=== PATIENT | female | born 1990 | race Caucasian/White ===

== ENCOUNTER 2016-11-15 14:23 | Emergency (ER) | payer OTHER ==
[2016-11-15 14:32] VITALS: BMI 29.2
[2016-11-15] MEDS ORDERED: PANTOPRAZOLE SODIUM 40 MG in SODIUM CHLORIDE 100 ML IVPB ONE (15:57)
[2016-11-15] MEDS ORDERED: ONDANSETRON 4 MG/2 ML VIAL IVPUSH ONE (15:57)
[2016-11-15] MEDS ORDERED: SODIUM CHLORIDE 1,000 ML IV STA ×2 (15:57→17:40)
[2016-11-15] MEDS ORDERED: ONDANSETRON 4 MG/2 ML VIAL ONE (16:26)
[2016-11-15] MEDS ORDERED: PANTOPRAZOLE SODIUM 100 ML IVPB ONE (16:26)
[2016-11-15 16:36] LABS: BASOPHIL 0.6 % (0-2.0); MCH 25.7 pg (25.7-33.7); MEAN CELL VOLUME 77.9 fl (80-96); MEAN PLT VOLUME 8.7 fl (7.5-11.1); NEUTROPHILS 85.4 % (42.8-82.8); PLATELET COUNT 259 K/MM3 (134-434); RDW 17.5 % (11.6-15.6); WHITE BLOOD COUNT 11.4 K/mm3 (4.0-10.0)
[2016-11-15 16:45] LABS: URINE APPEARANCE CLEAR; URINE BILIRUBIN NEGATIVE (NEGATIVE); URINE BLOOD NEGATIVE (NEGATIVE); URINE COLOR LTYELLOW; URINE GLUCOSE (UA) NEGATIVE (NEGATIVE); URINE KETONE TRACE (NEGATIVE); URINE NITRITE NEGATIVE (NEGATIVE); URINE PROTEIN NEGATIVE (NEGATIVE); URINE UROBILINOGEN NEGATIVE E.U./dl (0.2-1.0)
[2016-11-15 16:59] LABS: URINE LEUK ESTERASE 1+ (NEGATIVE)
[2016-11-15 17:01] LABS: MAGNESIUM 2.1 mg/dL (1.8-2.4); URINE MUCUS RARE; URINE RBC 1 /hpf (0-3); URINE WBC 5 /hpf (3-5)
[2016-11-15 17:04] LABS: ANION GAP 11 (8-16); CO2 25 mmol/L (21-32); CREATININE 0.6 mg/dL (0.55-1.02); GLUCOSE,RANDOM 110 mg/dL (74-106); SGOT/AST 18 U/L (15-37); SGPT/ALT 22 U/L (12-78)
[2016-11-15 17:06] LABS: ALK PHOS 87 U/L (45-117); BILIRUBIN,TOTAL 0.8 mg/dL (0.2-1.0); TOT PROT 7.4 g/dl (6.4-8.2)
[2016-11-15] MEDS ORDERED: LIDOCAINE VISCOUS 2% ORAL/TOP 20 ML UNIT-DOSE CUP MM ONE (17:40)
[2016-11-15] MEDS ORDERED: HYOSCYAMINE SULFATE 0.125 MG *ODT PO ONE (17:41)
[2016-11-15] MEDS ORDERED: MAG HYDROX/AL HYDROX/SIMETH 30 ML UNIT-DOSE CUP PO ONE (17:57)
[2016-11-15] MEDS ORDERED: MAG HYDROX/AL HYDROX/SIMETH 30 ML UNIT-DOSE CUP ONE (18:23)
[2016-11-15 18:58] VITALS: BP 148/77; PULSE 74; TEMP 98.2
--- NOTE | 2016-11-15 18:58 | PDOC ---
History of Present Illness - General Chief Complaint: Pain Stated Complaint: ABD PAIN Time Seen by Provider: 11/15/16 15:48 History Source: Patient Exam Limitations: No Limitations - History of Present Illness Travel History: No Initial Comments: 11/15/16 16:51 26-year-old female with history of gastritis presents to the ED with intermittent nausea and vomiting after meals and a burning sensation to her esophagus. Patient states is currently on no medication since she has not had symptoms for approximately 8 months. Patient states has had no fever, chills, dizziness, weakness, irregular menses, or dysuria. Patient also denies bowel complaints. Patient does state smokes marijuana 2-3 times a week but denies a daily usage. Timing/Duration: reports: intermittent Quality: reports: moderate, burning Abdominal Pain Onset Location: reports: epigastric Pain Radiation: reports: no radiation Activities at Onset: reports: none Aggravating Factors: improves with: Eating Alleviating Factors: improves with: None Past History - Past Medical History Allergies/Adverse Reactions: Allergies Allergy/AdvReac Type Severity Reaction Status Date / Time No Known Allergies Allergy Verified 11/15/16 14:32 Home Medications: Ambulatory Orders NK [No Known Home Medication] 11/15/16 GI Disorders: Yes - Reproductive History LMP Normal: Yes Is Patient Now?: No - Psycho/Social/Smoking Cessation Hx Suicidal Ideation: No Smoking History: Never smoked Information on smoking cessation initiated: No Hx Alcohol Use: Yes (TWICE A WEEK) Substance Use Type: Marijuana Patient Lives Alone: No Lives with/in: parents Abd/GI Specific PMHX - Complaint Specific PMHX GI Ulcer Disease: No Review of Systems - Review of Systems Able to Perform ROS?: Yes Constitutional: No: Symptoms Reported HEENTM: No: Symptoms Reported Respiratory: No: Symptoms reported Cardiac (ROS): No: Symptoms Reported ABD/GI: Yes: Nausea, Vomiting, Indigestion : No: Symptoms Reported Musculoskeletal: No: Symptoms Reported Integumentary: No: Symptoms Reported Neurological: No: Symptoms reported Hematologic/Lymphatic: No: Symptoms Reported *Physical Exam - Vital Signs Last Vital Signs Temp Pulse Resp BP Pulse Ox 98 F 60 18 135/77 99 11/15/16 14:30 11/15/16 14:30 11/15/16 14:30 11/15/16 14:30 11/15/16 14:30 - Physical Exam General Appearance: Yes: Nourished, Appropriately Dressed. No: Apparent Distress HEENT: positive: EOMI, RENATA. negative: Pale Conjunctivae Neck: positive: Supple Respiratory/Chest: positive: Lungs Clear, Normal Breath Sounds. negative: Respiratory Distress, Accessory Muscle Use Cardiovascular: positive: Regular Rhythm, Regular Rate. negative: Murmur Gastrointestinal/Abdominal: positive: Soft, Tenderness (epigastric no right upper quadrant tenderness) Extremity: negative: Normal Capillary Refill Integumentary: positive: Normal Color, Warm, Moist Neurologic: positive: Motor Strength 5/5 (ambulatory) ED Treatment Course - LABORATORY CBC & Chemistry Diagram: 11/15/16 16:32 11/15/16 16:32 - ADDITIONAL ORDERS Additional order review: Laboratory Results 11/15/16 11/15/16 11/15/16 16:32 16:32 16:32 Sodium 140 Potassium 4.4 Chloride 104 Carbon Dioxide 25 Anion Gap 11 BUN 8 Creatinine 0.6 Creat Clearance w eGFR > 60 Random Glucose 110 H Calcium 9.0 Magnesium 2.1 Total Bilirubin 0.8 D AST 18 D ALT 22 D Alkaline Phosphatase 87 D Total Protein 7.4 Albumin 4.0 Lipase 57 L Urine Color Ltyellow Urine Appearance Clear Urine pH 6.0 Ur Specific [place] 1.016 Urine Protein Negative Urine Glucose (UA) Negative Urine Ketones Trace H Urine Blood Negative Urine Nitrite Negative Urine Bilirubin Negative Urine Urobilinogen Negative Ur Leukocyte Esterase 1+ H Urine RBC 1 Urine WBC 5 Ur Epithelial Cells Few Urine Mucus Rare Urine HCG, Qual Negative 11/15/16 16:32 RBC 4.63 MCV 77.9 L MCHC 33.0 RDW 17.5 H D MPV 8.7 Neutrophils % 85.4 H Lymphocytes % 11.8 D Monocytes % 2.2 L Eosinophils % 0.0 D Basophils % 0.6 - Medications Given in the ED: ED Medications Discontinued Medications Generic Name Dose Route Start Last Admin Trade Name Freq PRN Reason Stop Dose Admin Al Hydroxide/Mg Hydroxide 30 ml 11/15/16 17:57 11/15/16 18:28 Mylanta Oral Suspension - PO 11/15/16 17:58 30 ml ONCE ONE Administration Hyoscyamine Sulfate 0.125 mg 11/15/16 17:41 11/15/16 18:27 Levsin Odt - PO 11/15/16 17:42 0.125 mg ONCE ONE Administration Pantoprazole Sodium 40 mg/ 100 mls @ 200 mls/hr 11/15/16 15:57 11/15/16 16:33 Sodium Chloride IVPB 11/15/16 16:26 200 mls/hr ONCE ONE Administration Sodium Chloride 1,000 mls @ 1,000 mls/hr 11/15/16 15:57 11/15/16 16:33 Normal Saline - IV 11/15/16 16:56 1,000 mls/hr ASDIR STA Administration Sodium Chloride 1,000 mls @ 1,000 mls/hr 11/15/16 17:40 11/15/16 18:00 Normal Saline - IV 11/15/16 18:39 1,000 mls/hr ASDIR STA Administration Lidocaine HCl 20 ml 11/15/16 17:40 11/15/16 18:00 Xylocaine 2% Viscous Oral - MM 11/15/16 17:41 20 ml ONCE ONE Administration Ondansetron HCl 4 mg 11/15/16 15:57 11/15/16 16:33 Zofran Injection IVPUSH 11/15/16 15:58 4 mg ONCE ONE Administration Medical Decision Making - Medical Decision Making 11/15/16 17:09 Patient here with nausea vomiting and epigastric burning. Patient history of gastritis but does not follow up with a gastrologist or take medication every day. Patient ordered for labs, Protonix, IV fluids, Zofran and urine with urine . 11/15/16 18:00 Laboratory Tests 11/15/16 11/15/16 11/15/16 16:32 16:32 16:32 WBC 11.4 H Hgb 11.9 Hct 36.1 Neutrophils % 85.4 H Sodium 140 Potassium 4.4 Chloride 104 Carbon Dioxide 25 Anion Gap 11 BUN 8 Creatinine 0.6 Random Glucose 110 H Magnesium AST 18 D ALT 22 D Lipase Urine Ketones Trace H Urine Nitrite Negative Ur Leukocyte Esterase 1+ H Urine WBC 5 Urine HCG, Qual Negative 11/15/16 16:32 WBC Hgb Hct Neutrophils % Sodium Potassium Chloride Carbon Dioxide Anion Gap BUN Creatinine Random Glucose Magnesium 2.1 AST ALT Lipase 57 L Urine Ketones Urine Nitrite Ur Leukocyte Esterase Urine WBC Urine HCG, Qual Patient still complaining of pain but denies nausea. Patient will be given a GI cocktail. 11/15/16 19:00 Patient states feeling better and will discharge home with Protonix. Patient also be given referral to salesperson driver. *DC/Admit/Observation/Transfer Diagnosis at time of Disposition: Gastritis Qualifiers: Gastritis type: unspecified gastritis Chronicity: chronic Gastritis bleeding: without bleeding Qualified Code(s): K29.50 - Unspecified chronic gastritis without bleeding - Discharge Dispostion Disposition: HOME Condition at time of disposition: Improved - Referrals Referrals: Prashant Orozco MD [Staff Physician] - - Patient Instructions Printed Discharge Instructions: DI for Gastritis Additional Instructions: Please take medication starting tomorrow and avoid spicy greasy food. Please also follow-up with referred salesperson driver
== END 2016-11-15 19:12 | disposition home or self-care (01) ==
LOC: JER 14:23
PROC: 3E0337Z Introduction of Electrolytic and Water Balance Substance into Peripheral Vein, Percutaneous Approach (ICD-10-PCS; principal; 2016-11-15)
PROC: 3E033GC Introduction of Other Therapeutic Substance into Peripheral Vein, Percutaneous Approach (ICD-10-PCS; 2016-11-15)
DX: K29.50 Unspecified chronic gastritis without bleeding (principal)
CPT/HCPCS: 36415; 80053; 81003; 81015; 83690; 83735; 84703; 85025; 96361; 96365; 96375; 99282-25

== ENCOUNTER 2018-05-29 20:22 | Emergency (ER) | payer OTHER ==
[2018-05-29 20:27] VITALS: BP 135/78; PULSE 86; TEMP 99; BMI 26.5
--- NOTE | 2018-05-29 21:14 | PDOC ---
History of Present Illness - General Chief Complaint: Cold Symptoms Stated Complaint: Shortness of Breath Time Seen by Provider: 05/29/18 21:08 History Source: Patient Exam Limitations: No Limitations - History of Present Illness Initial Comments: 05/29/18 21:13 HISTORY OF PRESENT ILLNESS: This is a 28-year-old female without significant medical history presents emergency Department with 2 weeks of upper respiratory symptoms. Patient reports subjective fevers and sore throat and cough. Patient denies shortness of breath or respiratory distress. Patient reports associated expressing similar symptoms over that period of time. No recent travel. PAST MEDICAL HISTORY: Denies past medical history SURGICAL HISTORY: Denies ALLERGIES: No known drug allergies REVIEW OF SYSTEMS General/Constitutional: +fever/chills. Denies weakness, weight change. HEENT: Denies change in vision. Denies ear pain or discharge. +sore throat. Cardiovascular: Denies chest pain or shortness of breath. Respiratory: Moist productive cough. No wheezing, or hemoptysis. Gastrointestinal: Denies nausea, vomiting, diarrhea or constipation. Denies rectal bleeding. Genitourinary: Denies dysuria, frequency, or change in urination. Musculoskeletal: Denies joint or muscle swelling or pain. Denies neck or back pain. Skin and breasts: Denies rash or easy bruising. Neurologic: Denies headache, vertigo, loss of consciousness, or loss of sensation. Psychiatric: Denies depression or anxiety. Endocrine: Denies increased thirst. Denies abnormal weight change. Hematologic/Lymphatic: Denies anemia, easy bleeding, or history of blood clots. Allergic/Immunologic: Denies hives or skin allergy. Denies latex allergy. PHYSICAL EXAM General Appearance: Well-appearing, appropriately dressed. No apparent distress , no intoxication. HEENT: EOMI, PERRLA, normal ENT inspection, normal voice, TMs normal. No conjunctival pallor. No photophobia, scleral icterus. Pharyngeal erythema present. No lesions or exudates. Neck: Supple. Trachea midline. No tenderness, rigidity, carotid bruit, stridor , lymphadenopathy, or thyromegaly. Respiratory/Chest: Lungs CTAB. No shortness of breath, chest tenderness, respiratory distress, accessory muscle use. No crackles, rales, rhonchi, stridor , dullness. Scattered wheezes. Cardiovascular: RRR. S1, S2. No JVD, murmur, bradycardia, tachycardia. Vascular Pulses: Dorsalis-Pedis (R): 2+, Dorsalis-Pedis (L): 2+ Gastrointestinal/Abdominal: Normal bowel sounds. Abdomen soft, non-distended. No tenderness or rebound tenderness. No organomegaly, pulsatile mass, guarding, hernia, hepatomegaly, splenomegaly. Lymphatic: No adenopathy, tenderness. Musculoskeletal/Extremities: Normal inspection. FROM of all extremities, normal capillary refill. Pelvis Stable. No CVA tenderness. No tenderness to extremities, pedal edema, swelling, erythema or deformity. Integumentary: Appropriate color, dry, warm. No cyanosis, erythema, jaundice or rash Neurologic: paper machine tender II-XII intact. Fully oriented, alert. Appropriate mood/affect. Motor strength 5/5. No appreciable EOM palsy, facial droop or sensory deficit. Past History - Past Medical History Allergies/Adverse Reactions: Allergies Allergy/AdvReac Type Severity Reaction Status Date / Time No Known Allergies Allergy Verified 05/29/18 20:27 Home Medications: Ambulatory Orders Guaifenesin [Mucinex -] 600 mg PO BID 05/29/18 COPD: No GI Disorders: Yes - Suicide/Smoking/Psychosocial Hx Smoking History: Never smoked Hx Alcohol Use: Yes (TWICE A WEEK) Substance Use Type: Marijuana *Physical Exam - Vital Signs Last Vital Signs Temp Pulse Resp BP Pulse Ox 99 F 86 18 135/78 98 05/29/18 20:25 05/29/18 20:25 05/29/18 20:25 05/29/18 20:25 05/29/18 20:25 Medical Decision Making - Medical Decision Making 05/29/18 21:13 A/P: 28-year-old female without significant medical history with 2 weeks of productive cough, sore throat Oropharynx erythematous without lesions or exudate Scattered expiratory wheezes noted DuoNeb's, reassess 05/29/18 22:10 Repeat lung exam reveals clear lungs after the nebulizer treatment. I'll discharge the patient home with symptomatic treatment of an upper respiration infection. *DC/Admit/Observation/Transfer Diagnosis at time of Disposition: URI (upper respiratory infection) Qualifiers: URI type: unspecified viral URI Qualified Code(s): J06.9 - Acute upper respiratory infection, unspecified - Discharge Dispostion Disposition: HOME Condition at time of disposition: Stable Decision to Admit order: No - Referrals - Patient Instructions Printed Discharge Instructions: DI for Viral Upper Respiratory Infection -- Adult Additional Instructions: Rest, drink lots of fluids: Teas, water, soups, Pedialyte Saltwater gargles Steamy showers/seem to face break up mucus Avoid contact with others until fevers and cough resolved Lots of handwashing and good hygiene Continue [id number] medications for symptomatic relief Tylenol or Motrin for fever and pain Followup with private physician in one to 2 days as needed Return to emergency department for worsened symptoms, fevers, dehydration - Post Discharge Activity
[2018-05-29] MEDS ORDERED: ALBUTEROL SO4 2.5/IPRATROPIUM 0.5 INH SOL 3 ML VIAL.NEB. NEB ONE (21:23)
[2018-05-29] MEDS: ALBUTEROL SO4 2.5/IPRATROPIUM 0.5 INH SOL 3 ML VIAL.NEB. NEB SCH ×2 (21:32→21:54)
== END 2018-05-29 22:17 | disposition home or self-care (01) ==
LOC: JERFT 20:22
PROC: 3E0F7GC Introduction of Other Therapeutic Substance into Respiratory Tract, Via Natural or Artificial Opening (ICD-10-PCS; principal; 2018-05-29)
PROC: 3E0F7GC Introduction of Other Therapeutic Substance into Respiratory Tract, Via Natural or Artificial Opening (ICD-10-PCS; 2018-05-29)
PROC: 3E0F7GC Introduction of Other Therapeutic Substance into Respiratory Tract, Via Natural or Artificial Opening (ICD-10-PCS; 2018-05-29)
PROC: 3E0F7GC Introduction of Other Therapeutic Substance into Respiratory Tract, Via Natural or Artificial Opening (ICD-10-PCS; 2018-05-29)
DX: J06.9 Acute upper respiratory infection, unspecified (principal)
CPT/HCPCS: 94640; 99281-25; J7620

== ENCOUNTER 2018-11-09 10:09 | Emergency (ER) | payer SELFPAY ==
[2018-11-09 10:30] VITALS: TEMP 99; BMI 27.4
[2018-11-09] MEDS ORDERED: ALBUTEROL SO4 2.5/IPRATROPIUM 0.5 INH SOL 3 ML VIAL.NEB. NEB ONE ×4 (10:38→12:06)
[2018-11-09] MEDS ORDERED: predniSONE 20 MG TABLET (UD) PO ONE (10:38)
[2018-11-09] MEDS ORDERED: predniSONE 20 MG TABLET (UD) ONE (10:43)
--- NOTE | 2018-11-09 11:00 | PDOC ---
History of Present Illness - General Chief Complaint: Respiratory Stated Complaint: SHORTNESS OF BREATH Time Seen by Provider: 11/09/18 10:36 History Source: Patient Exam Limitations: No Limitations - History of Present Illness Associated Symptoms: reports: cough, nasal congestion, wheezing (cough and wheezing x 1 day). denies: chest pain/soreness, dizziness, earache, facial pain , fever/chills, headache, lightheadedness, muscle aches, shortness of breath, sore throat Past History - Travel Traveled outside of the country in the last 30 days: No Close contact w/someone who was outside of country & ill: No - Past Medical History Allergies/Adverse Reactions: Allergies Allergy/AdvReac Type Severity Reaction Status Date / Time No Known Allergies Allergy Verified 11/09/18 10:36 Home Medications: Ambulatory Orders Albuterol Sulfate [Albuterol Sulfate Hfa] 8.5 gm IH ACDIN 7 Days #1 [email or web address] 11/09/18 Benzonatate [Tessalon Pearls -] 100 mg PO TID #21 capsule 11/09/18 COPD: No GI Disorders: Yes - Suicide/Smoking/Psychosocial Hx Smoking History: Never smoked Hx Alcohol Use: Yes (TWICE A WEEK) Substance Use Type: Marijuana Respiratory Specific PMHX - Complaint Specific PMHX Angina: No Bronchitis: No Pneumonia: No Pulmonary Embolus: No TB (Tuberculosis): No Review of Systems - Review of Systems Is the patient limited [place] proficient: No Constitutional: No: Chills, Fever Respiratory: Yes: Cough, Shortness of Breath, Wheezing, Productive cough. No: Orthopnea Cardiac (ROS): Yes: Chest Tightness. No: Chest Pain, Palpitations, Syncope Neurological: No: Headache, Numbness, Paresthesia, Weakness, Dizziness *Physical Exam - Vital Signs Last Vital Signs Temp Pulse Resp BP Pulse Ox 99 F 111 H 20 167/89 96 11/09/18 10:28 11/09/18 10:28 11/09/18 10:28 11/09/18 10:28 11/09/18 10:28 - Physical Exam General Appearance: Yes: Nourished Respiratory/Chest: positive: Wheezing Cardiovascular: positive: Regular Rhythm, Regular Rate, S1, S2 Extremity: positive: Normal Capillary Refill, Normal Inspection Neurologic: positive: manufacturing test engineer II-XII NML intact, Fully Oriented ED Treatment Course - RADIOLOGY Radiology Studies Ordered: Category Date Time Status CHEST PA & LAT [RAD] Stat Radiology 11/09/18 10:38 Ordered - Medications Given in the ED: ED Medications Discontinued Medications Generic Name Dose Route Start Last Admin Trade Name Kristen PRN Reason Stop Dose Admin Albuterol/Ipratropium 1 amp 11/09/18 10:38 11/09/18 10:47 Duoneb - NEB 11/09/18 10:39 1 amp ONCE ONE Administration Prednisone 60 mg 11/09/18 10:38 11/09/18 10:47 Deltasone - PO 11/09/18 10:39 60 mg ONCE ONE Administration Medical Decision Making - Medical Decision Making 11/09/18 10:56 28 years old female presents with cough chest congestion and wheezing since yesterday, she denies any smoking, chest discomfort any recent travel fever body aches or any sick contact. She reports the same similar symptoms occurred about 2 months ago and she was treated for upper respiratory infection. Patient reports she used her brother's inhaler last night with relief to her symptoms. On examination patient is actively wheezing on exam I will administer nebulizer and prednisone chest x-rays pending, elevated BP noted on triage, pt denies any hx of HTN, MONTES or visual disturbance. 11/09/18 13:17 xray no acute chest pathology pt given antitussive, inhaler PCP f/u recommended Clear lungs after 2 duo nebs 11/09/18 19:14 Rpt BP improved pt advised to f/u PCP for BP checks *DC/Admit/Observation/Transfer Diagnosis at time of Disposition: Acute bronchospasm due to viral infection - Discharge Dispostion Disposition: HOME Condition at time of disposition: Stable Decision to Admit order: No - Prescriptions Prescriptions: Albuterol Sulfate [Albuterol Sulfate Hfa] 8.5 gm IH ACDIN 7 Days #1 hfa.aer.[email or web address] Benzonatate [Tessalon Pearls -] 100 mg PO TID #21 capsule - Referrals - Patient Instructions Printed Discharge Instructions: Acute Bronchitis Additional Instructions: Please follow up with primary doctor Return to the Emergency Department if worsening symptoms occurs. - Post Discharge Activity
[2018-11-09 11:28] VITALS: BP 131/87; PULSE 105
== END 2018-11-09 12:50 | disposition home or self-care (01) ==
LOC: JERFT 10:09
PROC: 3E0F7GC Introduction of Other Therapeutic Substance into Respiratory Tract, Via Natural or Artificial Opening (ICD-10-PCS; principal; 2018-11-09)
DX: J20.8 Acute bronchitis due to other specified organisms (principal)
CPT/HCPCS: 71046-TC-FY; 84703; 99281-25

== ENCOUNTER 2023-11-10 08:24 | Observation (INO) | payer BC ==
[2023-11-10] MEDS ORDERED: EPINEPHrine/PF 1 MG/1 ML (1:1,000) AMPULE IM ONE (08:30)
[2023-11-10] MEDS: methylPREDNISolone NA SUCC 125 MG/2 ML VIAL IVPUSH ONE (08:32)
[2023-11-10] MEDS: MAGNESIUM SULF 50% (8.12 MEQ/2 ML-1 GM VIAL) IVPB ONE (08:32)
[2023-11-10] MEDS ORDERED: EPINEPHrine/PF 1 MG/1 ML (1:1,000) AMPULE ONE (08:33)
[2023-11-10 08:49] VITALS: BMI 25.8
[2023-11-10] MEDS: ALBUTEROL SO4 0.083% IH SOL 2.5 MG/3 ML VIAL.NEB. NEB ONE (08:54)
[2023-11-10] MEDS: ALBUTEROL SO4 2.5/IPRATROPIUM 0.5 INH SOL 3 ML VIAL.NEB. NEB SCH ×2 (08:54→12:09)
[2023-11-10 09:05] LABS: VENOUS O2 SATURATION 76.9 % (70-80); VENOUS PCO2 54.7 mmHg (38-52); VENOUS PH 7.235 (7.310-7.410)
[2023-11-10 09:11] LABS: BASO % 0.7 % (0-2.0); EOS % 4.6 % (0-4.5); HEMATOCRIT 29.2 % (32.4-45.2); HEMOGLOBIN 9.2 GM/dL (10.7-15.3); LYMPH % 29.5 % (8-40); MCH 20.4 pg (25.7-33.7); MCHC 31.3 g/dl (32.0-36.0); MEAN CELL VOLUME 65.2 fl (80-96); MEAN PLT VOLUME 7.9 fl (7.5-11.1); MONO % 5.5 % (3.8-10.2); NEUT % 59.7 % (42.8-82.8); PLATELET COUNT 358 10^3/uL (134-434); RBC 4.48 M/mm3 (3.60-5.2); WHITE BLOOD COUNT 11.8 K/mm3 (4.0-10.0)
[2023-11-10] MEDS: EPINEPHrine 1:1,000 0.3 MG/0.3 ML SYR IM ONE (09:23)
[2023-11-10 09:26] LABS: CALCIUM 8.9 mg/dL (8.5-10.1)
[2023-11-10 09:27] LABS: ALBUMIN 3.6 g/dl (3.4-5.0); BLOOD UREA NITROGEN 9.9 mg/dL (7-18)
[2023-11-10 09:30] LABS: CREATININE 0.7 mg/dL (0.55-1.3)
[2023-11-10 09:31] LABS: BILIRUBIN,TOTAL 0.5 mg/dL (0.2-1); TOT PROT 7.3 g/dl (6.4-8.2)
[2023-11-10] MEDS ORDERED: ACETAMINOPHEN INJECTION 100 ML IVPB ONE (09:39)
[2023-11-10] MEDS: ACETAMINOPHEN 1000 MG/100 ML BAG IVPB ONE (09:47)
[2023-11-10] MEDS: SODIUM CHLORIDE 0.9% 500 ML INFUS.BAG IV ONE (09:47)
[2023-11-10] MEDS ORDERED: ALBUTEROL SO4 0.083% IH SOL 2.5 MG/3 ML VIAL.NEB. NEB PRN ×2 (10:21→12:01)
[2023-11-10] MEDS ORDERED: ALBUTEROL SO4 2.5/IPRATROPIUM 0.5 INH SOL 3 ML VIAL.NEB. NEB ONE ×2 (10:31→12:05)
[2023-11-10 10:36] LABS: VENOUS O2 SATURATION 66.7 % (70-80); VENOUS PCO2 45.7 mmHg (38-52); VENOUS PH 7.288 (7.310-7.410)
[2023-11-10 10:46] LABS: ANISOCYTOSIS 0; MACROCYTOSIS 0
[2023-11-10] MEDS: ALBUTEROL SO4 2.5/IPRATROPIUM 0.5 INH SOL 3 ML VIAL.NEB. NEB ONE (11:11)
[2023-11-10] MEDS ORDERED: guaiFENesin 200 MG/10 ML 10 ML UNIT-DOSE CUPS PO PRN (15:10)
[2023-11-10] MEDS ORDERED: ACETAMINOPHEN 325 MG TABLET (FP) PO PRN (15:11)
[2023-11-10 15:28] LABS: VENOUS BASE EXCESS -5.4 mmol/L (-2-2); VENOUS O2 SATURATION 89.6 % (70-80); VENOUS PH 7.37 (7.310-7.410)
[2023-11-10] MEDS: PANTOPRAZOLE 40 MG TABLET PO SCH (17:51)
[2023-11-10] MEDS ORDERED: methylPREDNISolone NA SUCC 40 MG/1 ML VIAL IVPUSH SCH (18:00)
[2023-11-10] MEDS: methylPREDNISolone NA SUCC 40 MG/1 ML VIAL IVPUSH SCH (22:05)
[2023-11-11 06:50] LABS: BASO % 0.1 % (0-2.0); HEMATOCRIT 27.9 % (32.4-45.2); HEMOGLOBIN 8.8 GM/dL (10.7-15.3); LYMPH % 7.9 % (8-40); MCH 20.5 pg (25.7-33.7); MCHC 31.7 g/dl (32.0-36.0); MEAN CELL VOLUME 64.6 fl (80-96); MEAN PLT VOLUME 8.3 fl (7.5-11.1); MONO % 1.1 % (3.8-10.2); NEUT % 90.9 % (42.8-82.8); PLATELET COUNT 396 10^3/uL (134-434); RBC 4.32 M/mm3 (3.60-5.2); RDW 19.5 % (11.6-15.6); WHITE BLOOD COUNT 15.6 K/mm3 (4.0-10.0)
[2023-11-11 07:04] LABS: POTASSIUM 4.8 mmol/L (3.5-5.1)
[2023-11-11 07:11] LABS: CALCIUM 8.9 mg/dL (8.5-10.1)
[2023-11-11 07:12] LABS: ALBUMIN 3.5 g/dl (3.4-5.0); BLOOD UREA NITROGEN 9.5 mg/dL (7-18); MAGNESIUM 2.3 mg/dL (1.8-2.4)
[2023-11-11 07:15] LABS: CREATININE 0.7 mg/dL (0.55-1.3); PHOSPHOROUS 3.4 mg/dL (2.5-4.9)
[2023-11-11 07:16] LABS: BILIRUBIN,TOTAL 0.5 mg/dL (0.2-1); TOT PROT 6.9 g/dl (6.4-8.2)
[2023-11-11] MEDS: ENOXAPARIN NA (PORCINE) 40 MG/0.4 ML DISP.SYRIN SQ SCH (10:00)
[2023-11-11 10:55] VITALS: BP 134/80; PULSE 94; RESP 18; TEMP 97.9
[2023-11-11] MEDS ORDERED: ALBUTEROL SO4 2.5/IPRATROPIUM 0.5 INH SOL 3 ML VIAL.NEB. NEB SCH (14:00)
== END 2023-11-11 13:08 | disposition home or self-care (01) ==
LOC: JER 08:24 → JERBED 09:22 → INTOOBSV 09:22 → J4W 15:23
PROVIDERS: ADMIT Internal Medicine; ATTEND Internal Medicine
PROC: 3E0F7GC Introduction of Other Therapeutic Substance into Respiratory Tract, Via Natural or Artificial Opening (ICD-10-PCS; principal; 2023-11-10)
PROC: 3E023GC Introduction of Other Therapeutic Substance into Muscle, Percutaneous Approach (ICD-10-PCS; 2023-11-10)
PROC: 3E033GC Introduction of Other Therapeutic Substance into Peripheral Vein, Percutaneous Approach (ICD-10-PCS; 2023-11-10)
DX: J96.02 Acute respiratory failure with hypercapnia (principal); J96.01 Acute respiratory failure with hypoxia; J45.901 Unspecified asthma with (acute) exacerbation; K29.70 Gastritis, unspecified, without bleeding; F12.90 Cannabis use, unspecified, uncomplicated
CPT/HCPCS: 0241U-QW; 36415; 71045-TC-FY; 80053; 82803; 83735; 84100; 84703; 85025; 93005; 93010; 94640; 99291; G0378; J0131; J0171